=== PATIENT | female | born 1960 | race Caucasian/White ===

== ENCOUNTER 2020-02-20 10:18 | Emergency (ER) | payer OTHER ==
[~2020-02-20] VITALS: Ht 170.2 cm; Wt 90.7 kg
[~2020-02-20 10:18] MED LIST: ADVAIR HFA115 MCG/21 INH; AMBIEN 10 MG TA10 MG PO; AMBIEN 5 MG TABL5 M1 PO; AZITHROMYCIN 2250 MG PO; CELEXA20 MG PO; CELEXA40 MG PO; CHLORTHALIDONE25 MG PO; COLACE100 MG PO; DULERA 100 MCG/13 GM; FLEXERIL PO; KEPPRA 500 MG500 M1 PO; LACTULOSE PO; LISINOPRIL-HCT1 EAC2 PO; MAGOX 400400 MG PO; NEURONTIN 300300 M1 PO; NEURONTIN 400M400 M2 PO; NEURONTIN800 MG PO; NORVASC10 MG PO; OXYCONTIN10 M1 PO; OXYCONTIN80 M1 PO; POTASSIUM20 PO; PROZAC10 MG PO; PROZAC40 MG PO; ROXICODONE30 M1 PO; SYMBICORT160 MCG/4. INH; TEARS NATURALE1 EACH OPHTHALMIC; TIZANIDINE HCL 22 M1 PO; TOPROL XL25 MG PO; TYLENOL325 MG PO; UNICOMPLEX M TA1 TA1 PO; VENTOLIN HFA 1818 GM INH; VESICARE10 M1 PO; VIMPAT50 MG; ZITHROMAX500 MG PO; ZOCOR20 MG PO
[2020-02-20 10:22] VITALS: BP 142/91
[2020-02-20] MEDS ORDERED: PREDNISONE 20 M20 MG PO (11:20)
[2020-02-20] MEDS ORDERED: ELIMITE60 GM TOP (11:20)
[2020-02-20] MEDS ORDERED: BENADRYL25 MG PO (11:20)
== END 2020-02-20 11:40 | disposition home or self-care (01) ==
LOC: ER 10:18
DX: L30.9 Dermatitis, unspecified (principal); B86 Scabies; I10 Essential (primary) hypertension; G89.29 Other chronic pain; M54.9 Dorsalgia, unspecified; Z90.710 Acquired absence of both cervix and uterus; Z79.899 Other long term (current) drug therapy